=== PATIENT | female | born 1990 | race Caucasian/White ===

== ENCOUNTER 2017-11-22 11:01 | Outpatient (CLI) | payer OTHER ==
--- NOTE | 2017-11-22 16:24 | EKG ---
Test Reason : TACHYCARDIA Blood Pressure : / mmHG Vent. Rate : 097 BPM Atrial Rate : 097 BPM P-R Int : 128 ms QRS Dur : 096 ms QT Int : 342 ms P-R-T Axes : 052 067 027 degrees QTc Int : 434 ms Normal sinus rhythm ST elevation, consider early repolarization, pericarditis, or injury Borderline ECG Confirmed by HERNAN DOMINGUEZ ([id number]) on 11/22/2017 4:23:39 PM Referred By: ROBERT Confirmed By:HERNAN DOMINGUEZ
== END 2017-11-22 11:02 | disposition home or self-care (01) ==
LOC: EKG 11:01
PROVIDERS: ATTEND Student in an Organized Health Care Education/Training Program
DX: O99.89 Other specified diseases and conditions complicating pregnancy, childbirth and the puerperium (principal); R00.0 Tachycardia, unspecified; Z3A.24 24 weeks gestation of pregnancy; R94.31 Abnormal electrocardiogram [ECG] [EKG]
CPT/HCPCS: 93005; 93010

== ENCOUNTER 2017-11-27 15:05 | Day surgery (SDC) | payer OTHER ==
[2017-11-27 15:44] VITALS: BMI 38.7
--- NOTE | 2017-11-27 20:19 | PRG ---
DATE OF SERVICE: 11/27/2017 OB ER ENCOUNTER PRIMARY OB: Maryana Garnett MD CHIEF COMPLAINT: Feeling bad and racing heart. HISTORY OF PRESENT ILLNESS: The patient is a 27-year-old, G1, P0 female with an intrauterine pregnan cy at 25 weeks and a day, who presents to labor and delivery after experiencing at home what she annemarie cl was her heart racing up to about 140. The patient felt bad and did not feel her baby moving, and so came in for evaluation. The patient reports that she has a family history of SVT. She reports t hat she had an EKG just a couple days ago with Dr. Garnett, which was normal. She reports that she c an tell when her heart rate starts to race, because her heart starts to pound. She denies any previo us workup with Cardiology in the past. The patient denies illness, fever, fall, headache, chest pain , shortness of breath, nausea, vomiting, diarrhea, constipation. She does have some lower back pain that she attributes to the . Denies any vaginal bleeding, leakage of fluid, or urinary symp toms. The patient reports some nausea. PAST MEDICAL HISTORY: Seasonal allergies, depression, anxiety, has hair loss. PAST SURGICAL HISTORY: Negative. SOCIAL HISTORY: Denies drug, alcohol, or tobacco use. MEDICATIONS: Duloxetine 60 mg daily, vitamins. ALLERGIES: CLINDAMYCIN, SULFA DRUGS, DOXYCYCLINE, BACTRIM, CEFZIL, AND CIPRO. OB LABS: Blood type is O positive. Antibody screen negative. She is rubella immune, hepatitis B forte rface antigen nonreactive, RPR nonreactive, HIV nonreactive. REVIEW OF SYSTEMS: Per HPI. PHYSICAL EXAMINATION: VITAL SIGNS: Blood pressure 127/79, heart rate monitored over nearly 2 hours ranged from 82-105, res piratory rate 20, satting 97%-98% on room air, temperature 99. GENERAL: She appears to be in no acute distress. She is alert and oriented, cooperative, and pleasa nt to interact with. HEENT: Head is normocephalic, atraumatic. LUNGS: Clear to auscultation bilaterally. HEART: Regular rate and rhythm. ABDOMEN: Soft, gravid, nontender. She has CVA tenderness to palpation. EXTREMITIES: Nontender, nonedematous. heart tracing is category 1, baseline in the 140s with moderate long-term variability and appro priate for 25-week gestation. ASSESSMENT AND PLAN: The patient is a 27-year-old, G1, P0 female with an intrauterine at 2 5 weeks, who presented with what appears to be a transient tachycardia that had resolved prior to pre sentation to the Labor and Delivery. Here, her heart rate is within acceptable limits for . She denies any symptoms at this time. Fetus is reassuring for gestational age. The patient does h ave family history of SVT. The patient's EKG from a couple days ago was normal sinus rhythm. The esther galvan has been counseled to follow up with her primary OB and discuss the option of a Cardiology cons ult. The patient is being discharged to home.
== END 2017-11-27 17:11 | disposition home or self-care (01) ==
LOC: L&D/OP 15:05 → EDSTATUS 15:07 → L&D/OP 17:11
PROVIDERS: ATTEND Student in an Organized Health Care Education/Training Program
DX: O99.412 Diseases of the circulatory system complicating pregnancy, second trimester (principal); R00.0 Tachycardia, unspecified; O99.89 Other specified diseases and conditions complicating pregnancy, childbirth and the puerperium; J30.2 Other seasonal allergic rhinitis; O99.342 Other mental disorders complicating pregnancy, second trimester; F41.9 Anxiety disorder, unspecified; F32.9 Major depressive disorder, single episode, unspecified; L65.9 Nonscarring hair loss, unspecified; Z3A.25 25 weeks gestation of pregnancy; Z79.899 Other long term (current) drug therapy; Z88.1 Allergy status to other antibiotic agents; Z88.2 Allergy status to sulfonamides
CPT/HCPCS: 99282

== ENCOUNTER 2018-02-22 22:55 | Day surgery (SDC) | payer OTHER ==
[2018-02-22 23:45] VITALS: BP 121/75; TEMP 99.2
--- NOTE | 2018-02-22 23:58 | PDOC.LDHP ---
Labor and Delivery H&P Chief complaint: other (Felling "bad"...no contractions) HPI: Patient of Dr padgett EGA: 37 weeks 4 days Location: L&D Triage HPI: Patient is a 27 yo G1 with EDC 03/11 seen today by Mariola but states just "feels bad". No fever, cough, dysuria, but some decreased FM. No trauma, no NELSON, no contractions, no VB nor LOF. Review of systems: complete ROS done and as per HPI Current gestational age (weeks): 37 (4 days) Due date: 03/11/18 Grav: 1 Para: 0 Current complications: none Abnormal US findings: No Current medications: none Previous surgical history: none Allergies/Adverse Reactions: Allergies Allergy/AdvReac Type Severity Reaction Status Date / Time cephalexin [From Keflex] Allergy Verified 02/22/18 23:46 clindamycin Allergy Verified 02/22/18 23:46 sulfamethoxazole Allergy Verified 02/22/18 23:46 [From Bactrim] trimethoprim [From Bactrim] Allergy Verified 02/22/18 23:46 doxicycline Allergy Uncoded 11/27/17 15:34 - Physical Exam Vital signs reviewed and normal: yes (Pulse 104. BP 121/75) General: NAD Heart: RRR Lungs: CTAB Abdomen: gravid Extremeties: no edema FHT: category 1 [place] contractions every: none - Assessment G1 at early term with vague sxs, c/w discomforts of - Plan Plan: observation in L&D (No evidenece PIH or labor, NST reactive. I have ordered CMP and IVF for conservative care. If CMP normal, will release to outpatient f/u), other
[2018-02-22] MEDS ORDERED: Lactated Ringer's 1,000 ML IV SCH (23:59)
[2018-02-23 00:57] LABS: ALT (SGPT) 9 U/L (8-55); AST (SGOT) 15 U/L (5-34); Albumin 3.2 g/dL (3.5-5.0); Alkaline Phosphatase 192 U/L (40-150); Anion Gap 14 mmol/L (10-20); BUN (Urea Nitrogen) 8 mg/dL (7.0-18.7); Bilirubin, Total 0.3 mg/dL (0.2-1.2); Calc. Creatinine Clearance 0 mL/min (70-130); Calcium 9.4 mg/dL (7.8-10.44); Carbon Dioxide 22 mmol/L (22-29); Chloride 105 mmol/L (98-107); Estimated GFR-MDRD Greater than 90; Globulin 2.9 g/dL (2.4-3.5); Glucose 91 mg/dL (70-105); Potassium 4.1 mmol/L (3.5-5.1); Protein, Total 6.1 g/dL (6.0-8.3); Sodium 137 mmol/L (136-145)
--- NOTE | 2018-02-23 01:14 | PDOC.EVN ---
Event Note - Event Note Event Note: CMP is wnl. OK for release home after IVFs. Fetus with adequate movement. No evidence labor.
--- NOTE | 2018-02-23 01:35 | PDOC.EVN ---
Event Note - Event Note Event Note: Prior to discharge, I reviewed the FHTs again with the monorail charger operator...last 20 minutes now with decreased variability and limited accels. There was alot of audible movement previously, so this may be a sleep cycle. I have discussed this with the patient. Prior to DC home, I will get a BPP.
--- NOTE | 2018-02-23 03:37 | PDOC.EVN ---
Event Note - Event Note Event Note: [facility] 03/07
--- NOTE | 2018-02-23 09:48 | ULT ---
PRELIMINARY REPORT/[facility]/EMERGENTY AFTER-HOURS PROCEDURE US Biophysical Profile Without Non-Stress Testing CLINICAL HISTORY: 27 years old, female; Screening exam; Routine us screening of fetus; Third; ; Patient HX: Non reactive nst, decreased movement TECHNIQUE: Real-time ultrasound of the maternal pelvis for biophysical profile evaluation with image docum entation. COMPARISON: No relevant prior studies available. FINDINGS: breathing movements: Present. Score 2/2. Gross body movements: Present. Score 2/2. tone: Present. Score 2/2. Qualitative amniotic fluid volume: Within normal limits. Score 2/2. IMPRESSION: Normal biophysical profile ultrasound. Score 8/8. US Uterus, Limited TECHNIQUE: Real-time ultrasound of the maternal uterus (limited) with image documentation. COMPARISON: No relevant prior studies available. FINDINGS: Single, living intrauterine gestation in vertex presentation. heart rate is 147 beats per minut e. Placenta is anterior. No acute findings. Normal amniotic fluid (SERGEY 18.6 cm). IMPRESSION: Single viable intrauterine . No acute findings. Thank you for allowing us to participate in the care of your patient. Dictated and Authenticated by: Anderson Gaona MD 02/23/2018 5:53 AM Central Time ([place] & [place]) FINAL REPORT EMERGENCY AFTER HOURS STUDY ULTRASOUND BIOPHYSICAL PROFILE: HISTORY: A 27-year-old female with nonreactive NST. FINDINGS: breathin tone: 2 movement: 2 Amniotic fluid volume: 2 Agree with preliminary report by [facility]. IMPRESSION: Normal biophysical profile score of 8/8, excluding the non-stress test. dylon POS: RISHI
== END 2018-02-23 03:50 | disposition home or self-care (01) ==
LOC: L&D/OP 22:55
PROVIDERS: ATTEND Student in an Organized Health Care Education/Training Program
DX: O36.8130 Decreased fetal movements, third trimester, not applicable or unspecified (principal); Z3A.37 37 weeks gestation of pregnancy; Z79.899 Other long term (current) drug therapy; Z88.2 Allergy status to sulfonamides; Z88.1 Allergy status to other antibiotic agents
CPT/HCPCS: 36415; 76819; 80053; 96360; 96361; 99283

== ENCOUNTER 2018-03-01 01:15 | Day surgery (SDC) | payer OTHER ==
[2018-03-01 01:53] VITALS: BMI 42.4
[2018-03-01 02:45] LABS: Bilirubin Negative (Negative); Blood, Urine Negative (Negative); Clarity CLOUDY (Clear); Glucose, Urine (Dipstick) Negative (Negative); Leukocyte Negative (Negative); Nitrite Negative (Negative); Protein, Urine (Dipstick) Negative (Neg-Trace); Specific Gravity, Urine 1.011 (1.002-1.036); Urobilinogen 0.2 mg/dL (0.2-1.0); pH, Urine 6.5 (5.0-9.0)
--- NOTE | 2018-03-01 06:10 | PRG ---
DATE OF SERVICE: 03/01/2018 PRIMARY HUMAN RESOURCES OPERATIONS SPECIALIST: Dr. Maryana Garnett. CHIEF COMPLAINT: Elevated blood pressures and headache. HISTORY OF PRESENT ILLNESS: The patient is a 27-year-old G1, P0 female with an intrauterine at 38 weeks and 4 days, who is presenting to labor and delivery after being awoken with a headache and resulting in blood pressure evaluation. The patient reports that she has had blood pressures in the mild range at home in the 140s. She also reports that she had a mild range blood pressure in clinic today with Dr. Garnett and was given instructions should she experience headache that she should come into the hospital for evaluation. The patient reports that her headache came on few hours ago. She denies any fevers or falls, chest pain, shortness of breath. She has had some nausea. Denies diarrhea or constipation. Denies any new skin rashes. Denies hip problems, knee problems or muscle weakness. Denies vaginal bleeding or leakage of fluid, urinary urgency or frequency. 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 PAST SURGICAL HISTORY: Negative. ALLERGIES: CLINDAMYCIN, SULFA, DOXYCYCLINE, BACTRIM, CEFZIL, and CIPRO. MEDICATIONS: vitamins and Cymbalta. SOCIAL HISTORY: Denies drug, alcohol or tobacco use. OB LABS: Blood type is O positive, antibody screen is negative, HIV is nonreactive in the first trimester, RPR is nonreactive in the first trimester. Hepatitis B surface antigen is nonreactive in the first trimester. She is rubella immune. Her one hour Glucola was 157 with a normal 3 hour GTT. She is group B Strep negative. REVIEW OF SYSTEMS: Per HPI. PHYSICAL EXAMINATION: VITAL SIGNS: Initial blood pressure was 134/87, heart rate of 111, respiratory rate of 18, satting 100% on room air, temperature 98.9. Since arrival, the patient has had a couple mild range blood pressures with the most recent being 144/87. GENERAL: She appears to be in no acute distress. She is alert and oriented, cooperative and pleasant to interact with. HEENT: Normocephalic, atraumatic. LUNGS: Clear to auscultation bilaterally. HEART: Regular rate and rhythm. ABDOMEN: Soft and gravid and nontender. EXTREMITIES: Bilaterally edematous, 1+. CERVICAL: Deferred at this time. heart tracing shows a fetus with baseline in the 130s with moderate long- term variability, positive 15 x 15 accelerations, no decelerations. Tocometer showing some irritability, but no consistent contraction pattern. UA has been sent for protein and is negative on dipstick. ASSESSMENT AND PLAN: The patient is a 27-year-old G1, P0 female with an intrauterine at 38 weeks and 4 days, who is presenting with a headache and reported mild range pressures at home. She has had a couple mild range pressures here and no protein on dipstick. We will continue to monitor her blood pressures and try to treat her headache with Tylenol if her pressures persist. If We admit for gestational hypertension we will contact her provider, Dr. Garnett. Her fetus has a reactive NST and category 1 tracing. Addendum. Pt observed for 4.5 hours. blood pressures returned to normal from intermittent low mild range the first hour. Patients headache resolved spontaneously. No protein in urine dip. Pt was discharged home with instructions to see her primary ob in 1-2 days. SMILEY
== END 2018-03-01 06:40 | disposition home health service, planned readmission (86) ==
LOC: L&D/OP 01:15
PROVIDERS: ATTEND Student in an Organized Health Care Education/Training Program
DX: O99.89 Other specified diseases and conditions complicating pregnancy, childbirth and the puerperium (principal); R51 Headache; O16.3 Unspecified maternal hypertension, third trimester; O99.343 Other mental disorders complicating pregnancy, third trimester; F41.8 Other specified anxiety disorders; O99.113 Other diseases of the blood and blood-forming organs and certain disorders involving the immune mechanism complicating pregnancy, third trimester; D89.89 Other specified disorders involving the immune mechanism, not elsewhere classified; Z3A.38 38 weeks gestation of pregnancy; Z79.899 Other long term (current) drug therapy; Z88.1 Allergy status to other antibiotic agents; Z88.2 Allergy status to sulfonamides
CPT/HCPCS: 81003; 99283

== ENCOUNTER 2018-03-07 16:33 | Inpatient (IN) | payer OTHER ==
[2018-03-07] MEDS ORDERED: Promethazine HCl 25 MG/ML VIAL IM PRN ×2 (16:55→23:17)
[2018-03-07] MEDS ORDERED: Calcium Gluc 4.6 MEQ/10 ML (100 MG/ML) SLOW IVP PRN (16:55)
[2018-03-07] MEDS ORDERED: Meperidine HCl/PF 25 MG/ML VIAL IM/IV PRN (16:55)
[2018-03-07] MEDS ORDERED: Magnesium Sulfate 20 GM/WATER 500 ML BAG IVPB SCH (17:00)
[2018-03-07] MEDS ORDERED: Magnesium Sulfate 20 gm/500 ml 20 GM/500 ML BAG IVPB SCH (17:00)
[2018-03-07] MEDS: Lactated Ringer's 1,000 ML IV SCH ×2 (17:20→22:00)
[2018-03-07 17:32] VITALS: BMI 43.2
[2018-03-07 17:57] LABS: ALT (SGPT) 10 U/L (8-55); AST (SGOT) 15 U/L (5-34); Albumin 3.1 g/dL (3.5-5.0); Alkaline Phosphatase 205 U/L (40-150); Anion Gap 14 mmol/L (10-20); BUN (Urea Nitrogen) 9 mg/dL (7.0-18.7); Bilirubin, Total 0.2 mg/dL (0.2-1.2); Calc. Creatinine Clearance 202 mL/min (70-130); Calcium 8.9 mg/dL (7.8-10.44); Carbon Dioxide 21 mmol/L (22-29); Chloride 106 mmol/L (98-107); Estimated GFR-MDRD Greater than 90; Globulin 2.6 g/dL (2.4-3.5); Glucose 89 mg/dL (70-105); Potassium 3.7 mmol/L (3.5-5.1); Protein, Total 5.7 g/dL (6.0-8.3); Sodium 137 mmol/L (136-145)
[2018-03-07 18:15] LABS: Syphilis Antibody Nonreactive (Nonreactive); Syphilis Antibody Index 0.03 S/CO (<1.00 Non-Reactive)
[2018-03-07 18:16] LABS: HBSAg Index 0.14 S/CO (0-0.99); Hep B Surf Ag Non-Reactive S/CO (NonReactive)
[2018-03-07 18:24] LABS: Hemoglobin 10.7 g/dL (12.0-16.0); Mean Corpuscular HGB CONC 33.7 g/dL (32.0-36.0); Mean Corpuscular Hemoglobin 28.7 pg (27.0-31.0); Mean Corpuscular Volume 85.2 fL (78.0-98.0); Mean Platelet Volume 11.8 fL (7.4-10.4); Platelet Count 128 thou/uL (130-400); RBC Distribution Width 13.2 % (11.5-14.5); Red Blood Cell (RBC) Count 3.74 mill/uL (4.20-5.40); White Blood Cell (WBC) Count 11.5 thou/uL (4.8-10.8)
--- NOTE | 2018-03-07 20:32 | PDOC.LDHP ---
Labor and Delivery H&P Chief complaint: other (Rosina is a at 39 weeks and 5 days gestation. She was seen in the office today for a SILVER visit. her blood press) HPI: sent from office with elevated blood pressures and protein uria. Has had a mild NELSON all day. Current gestational age (weeks): 39 Dating criteria: last menstrual period, first trimester ultrasound Grav: 1 Para: 0 Abnormal US findings: No Past Medical History: depression - on cymbalta Current medications: other (cymbalta 60mg PO QD) Allergies/Adverse Reactions: Allergies Allergy/AdvReac Type Severity Reaction Status Date / Time cephalexin [From Keflex] Allergy Verified 02/22/18 23:46 clindamycin Allergy Verified 02/22/18 23:46 nitrofurantoin Allergy Verified 03/07/18 17:13 sulfamethoxazole Allergy Verified 02/22/18 23:46 [From Bactrim] trimethoprim [From Bactrim] Allergy Verified 02/22/18 23:46 doxicycline Allergy Uncoded 11/27/17 15:34 Social history: none - Physical Exam Vital signs reviewed and normal: yes Abnormal vital signs: Blood pressures stable, no elevations General: breathing through contractions Lungs: nonlabored breathing Abdomen: gravid Extremeties: pitting edema FHT: category 2 (occ episodes of minimal varibility) - Vaginal Exam cm dilated: 1 Effacement: 50% Station: -3 - OB Labs Blood type: O RH: positive Antibody Screen: negative HIV: negative RPR: negative HEPSAg: negative 1 hour GCT: positive GBS: negative Urine drug screen: not done Rubella: immune - Assessment L&D Assessment: elective induction at term - Plan Plan: admit to L&D, labor augmentation if indicated
[2018-03-07] MEDS ORDERED: DISCONTINUE ALL PREVIOUS NARCOTICS FS SCH (22:15)
[2018-03-07] MEDS: Ondansetron HCl/PF 4 MG/2 ML Vial IVP PRN (22:18)
[2018-03-07] MEDS ORDERED: ePHEDrine/0.9% NaCl/PF SYRINGE 50 mg/10 ml SLOW IVP PRN (23:17)
[2018-03-07] MEDS ORDERED: Lactated Ringer's 500 ML IV PRN (23:17)
[2018-03-07] MEDS ORDERED: Acetaminophen 325 MG TAB PO PRN (23:17)
[2018-03-07] MEDS ORDERED: diphenhydrAMINE 50 MG/ML VIAL IVP PRN (23:17)
[2018-03-07] MEDS ORDERED: Naloxone HCl 0.4 mg/ml Vial IVP PRN ×2 (23:17)
[2018-03-07] MEDS ORDERED: Ondansetron HCl/PF 4 MG/2 ML Vial IVP PRN (23:17)
[2018-03-07] MEDS ORDERED: Hydrocerin (Eucerin) Cream 120 gm Jar TOP PRN (23:17)
[2018-03-07] MEDS ORDERED: fentaNYL Citrate/PF 400 MCG, Bupivacaine 0.5% 20 ML in Sodium Chloride 0.9% 72 ML EPIDURAL SCH (23:30)
[2018-03-07] MEDS ORDERED: Communication Order-Pharmacy FS SCH (23:30)
[2018-03-08] MEDS: Lactated Ringer's 1,000 ML IV SCH ×2 (00:07→10:21)
[2018-03-08] MEDS: Bupivacaine 0.5% 20 ML, fentaNYL Citrate/PF 400 MCG in Sodium Chloride 0.9% 72 ML EPIDURAL SCH ×2 (00:09→07:48)
[2018-03-08] MEDS ORDERED: Dextrose 5%-Lactated Ringers 1,000 ML IV PRN (01:55)
[2018-03-08] MEDS ORDERED: NS w/ Oxytocin 10 units 500 ML IV SCH (02:00)
[2018-03-08] MEDS ORDERED: Bupivacaine 0.25% HCL 30 ML VIAL ONE (10:00)
[2018-03-08] MEDS: Ondansetron HCl/PF 4 MG/2 ML Vial IVP PRN (10:24)
[2018-03-08] MEDS ORDERED: NS / Oxytocin 40 units/1000ml 1,000 ML ONE ×2 (13:07→15:04)
[2018-03-08] MEDS ORDERED: Lidocaine 1% (PF) 30 ML VIAL ONE (13:07)
[2018-03-08] MEDS ORDERED: Misoprostol 200 MCG TAB ONE (13:35)
--- NOTE | 2018-03-08 13:45 | PDOC.OPDEL ---
OB Operative/Delivery Note Delivery Dr/Surgeon: Light Pre-Delivery Diagnosis: other (induction of labor) Procedure/Post Delivery Dx: spontaneous vaginal delivery Weeks gestation: 39 Anesthesia: epidural - Findings A Sex: female - 1 min: 6 - 5 min: 7 (9 at 10 mins) - Additional Findings/Plan Placenta delivered: spontaneous Repaired Obstetrical Laceration: none Estimated blood loss: 400mL Post delivery plan: routine recovery
[2018-03-08] MEDS ORDERED: Benzocaine/Menthol 20-0.5% 60 ML CAN TOP PRN (16:28)
[2018-03-08] MEDS ORDERED: Adacel (T-DAP) 0.5 ML VIAL IM ONE (16:28)
[2018-03-08] MEDS ORDERED: Milk Of Magnesia 30 ML UDCUP PO PRN (16:28)
[2018-03-08] MEDS ORDERED: Acetaminophen/Codeine 30-300mg Tablet PO PRN ×2 (16:28)
[2018-03-08] MEDS ORDERED: Bisacodyl 10 MG SUPP PR PRN (16:28)
[2018-03-08] MEDS ORDERED: NS / Oxytocin 40 units/1000ml 1,000 ML IV SCH (16:28)
[2018-03-08] MEDS: Ferrous Sulfate 325 MG TAB PO SCH (17:55)
[2018-03-09] MEDS: DULoxetine 60 MG CAP PO SCH ×2 (05:37→20:22)
[2018-03-09] MEDS: Docusate Calcium (SURFAK) 240 MG CAP PO SCH ×3 (05:38→20:22)
[2018-03-09] MEDS: Ibuprofen 800 MG TAB PO SCH ×4 (05:38→21:42)
[2018-03-09 06:54] LABS: Hemoglobin 9.9 g/dL (12.0-16.0); Mean Corpuscular HGB CONC 32.7 g/dL (32.0-36.0); Mean Corpuscular Hemoglobin 28.1 pg (27.0-31.0); Mean Corpuscular Volume 85.9 fL (78.0-98.0); Platelet Count 111 thou/uL (130-400); RBC Distribution Width 13.3 % (11.5-14.5); Red Blood Cell (RBC) Count 3.51 mill/uL (4.20-5.40); White Blood Cell (WBC) Count 12.4 thou/uL (4.8-10.8)
[2018-03-09] MEDS: Ferrous Sulfate 325 MG TAB PO SCH ×2 (08:50→17:21)
[2018-03-09] MEDS: Prenatal Vitamin 1 TAB PO SCH (08:50)
[2018-03-10] MEDS: Ibuprofen 800 MG TAB PO SCH (06:07)
[2018-03-10 08:36] VITALS: BP 147/70; TEMP 98.4
[2018-03-10] MEDS: Prenatal Vitamin 1 TAB PO SCH (08:57)
[2018-03-10] MEDS: Ferrous Sulfate 325 MG TAB PO SCH (08:57)
[2018-03-10] MEDS: Docusate Calcium (SURFAK) 240 MG CAP PO SCH (08:58)
--- NOTE | 2018-03-10 11:33 | PDOC.PP ---
Post Progress Note Post Day #: 1 Subjective: doing well, infant is feeding well. bleeding is light. passing gas and having BM PO intake tolerated: yes Flatus: yes Ambulation: yes Vital Signs (12 hours) Temp Pulse Resp BP BP 03/10/18 07:52 98.4 F 78 17 147/70 H 147/70 H Weight Weight 252 lb - Physical Examination General: NAD Cardiovascular: no m/r/g, RRR Respiratory: clear to auscultation bilaterally Abdominal: lochia (minimal) Extremities: negative homans (B) Neurological: no gross focal deficits Psychiatric: A&Ox3 Result Diagrams: 03/09/18 05:35 03/07/18 17:20 Additional Labs: Post Labs Blood Type O POSITIVE 03/07/18 17:20 Hep Bs Antigen Non-Reactive S/CO (NonReactive) 03/07/18 17:20 (1) (spontaneous vaginal delivery) Code(s): O80 - ENCOUNTER FOR FULL-TERM UNCOMPLICATED DELIVERY Status: Acute
--- NOTE | 2018-03-10 11:43 | PDOC.PP ---
Post Progress Note Post Day #: 2 Subjective: Doing well, ready for discharge PO intake tolerated: yes Flatus: yes Ambulation: yes Vital Signs (12 hours) Temp Pulse Resp BP BP 03/10/18 07:52 98.4 F 78 17 147/70 H 147/70 H Weight Weight 252 lb - Physical Examination General: NAD Cardiovascular: no m/r/g Respiratory: clear to auscultation bilaterally Abdominal: + bowel sounds Extremities: negative homans (B) Neurological: no gross focal deficits Psychiatric: A&Ox3, normal affect Result Diagrams: 03/09/18 05:35 03/07/18 17:20 Additional Labs: Post Labs Blood Type O POSITIVE 03/07/18 17:20 Hep Bs Antigen Non-Reactive S/CO (NonReactive) 03/07/18 17:20 (1) (spontaneous vaginal delivery) Code(s): O80 - ENCOUNTER FOR FULL-TERM UNCOMPLICATED DELIVERY Status: Acute - Assessment/Plan Plan: Asked to see patient per [place]. Asked to clear for dsch. BP last was 147/70 but that was then only isolated value above the norm. We will follow as outpatient as no SXs PIH. Desires to go home. I have written for motrin for pain med prn. F/U at [facility] in 2 weeks for BP check.
== END 2018-03-10 12:40 | disposition home or self-care (01) | DRG 775 ==
LOC: L&D/OP 16:33 → L&D 17:19 → 3SW 03-08 16:03
PROVIDERS: ADMIT Obstetrics & Gynecology; ATTEND Obstetrics & Gynecology
PROC: 10E0XZZ Delivery of Products of Conception, External Approach (ICD-10-PCS; principal; 2018-03-08)
PROC: 10907ZC Drainage of Amniotic Fluid, Therapeutic from Products of Conception, Via Natural or Artificial Opening (ICD-10-PCS; 2018-03-08)
PROC: 3E033VJ Introduction of Other Hormone into Peripheral Vein, Percutaneous Approach (ICD-10-PCS; 2018-03-08)
DX: O80 Encounter for full-term uncomplicated delivery (principal); Z3A.39 39 weeks gestation of pregnancy; Z37.0 Single live birth
CPT/HCPCS: 36415; 51702; 80053; 85027; 86780; 86850; 86900; 86901; 87340; J2001; J2175; J2405; J3010; J3490; J7050; S0020